=== PATIENT | female | born 1965 | race Caucasian/White ===

== ENCOUNTER → 2017-01-12 18:27 | Outpatient (CLI) | payer BC | END | disposition home or self-care (01) | LOC: D.MAMMO 10:45 | DX: Z12.31 Encounter for screening mammogram for malignant neoplasm of breast (principal) ==

== ENCOUNTER → 2017-12-14 11:16 | Outpatient (CLI) | payer BC | END | disposition home or self-care (01) | LOC: D.CT 11-10 13:00 | DX: J32.9 Chronic sinusitis, unspecified (principal) ==

== ENCOUNTER 2018-07-30 19:19 | Emergency (ER) | payer BC ==
[~2018-07-30] VITALS: Ht 165.1 cm; Wt 139.5 kg
[2018-07-30 19:27] VITALS: Ht 165.1 cm; Wt 139.5 kg
[2018-07-30] MEDS ORDERED: GLUCOPHAGE1000 MG PO (19:29)
[2018-07-30] MEDS ORDERED: PRAVASTATIN SOD10 MG PO (19:29)
[2018-07-30] MEDS ORDERED: LISINOPRIL5 MG PO (19:29)
[2018-07-30] MEDS ORDERED: VITAMIN D31000 UNIT PO (19:30)
[2018-07-30] MEDS ORDERED: GLUCOTROL ER2.5 MG PO (19:30)
[2018-07-30 20:05] LABS: APPEARANCE CLOUDY (CLEAR); BASOPHILS 0.4 % (0-2); COLOR YELLOW (YELLOW); EOSINOPHILS 1.7 % (0-7); HEMATOCRIT 49.2 % (36.0-48.0); HEMOGLOBIN 16.8 g/dL (12-16); LYMPHOCYTES 34.4 % (15-50); MCH 32.4 pg (26.0-34.0); MCHC 34.1 g/dL (31.0-37.0); MONOCYTES 6.1 % (2-11); NEUTROPHILS 56.4 % (40-80); PLATELET COUNT 184 10x3/uL (130-400); RBC 5.18 10x6/uL (4.00-5.40); RDW 14.5 % (11.5-14.5); SPECIFIC GRAVITY 1.025 (1.005-1.020); WBC 10.3 10x3/uL (4.8-10.8)
[2018-07-30 20:06] LABS: BILIRUBIN NEGATIVE (NEGATIVE); GLUCOSE 1000 mg/dL (NEGATIVE); KETONE NEGATIVE (NEGATIVE); NITRITE NEGATIVE (NEGATIVE); PROTEIN 1+ mg/dL (NEGATIVE); UROBILINOGEN NORMAL (NORMAL)
[2018-07-30 20:09] LABS: BACTERIA MODERATE /hpf (NONE SEEN)
[2018-07-30 20:23] LABS: ALBUMIN 3.5 g/dL (3.4-5.0); ANION GAP 15.8 mmol/L (8-16); BILIRUBIN - TOTAL 0.48 mg/dL (0.2-1.3); CALCIUM 9.3 mg/dL (8.5-10.1); CARBON DIOXIDE 25.3 mmol/L (21.0-32.0); CREATININE - SERUM 1.1 mg/dL (0.6-1.3); MAGNESIUM - SERUM 1.7 mg/dL (1.8-2.4); POTASSIUM - SERUM 4.1 mmol/L (3.5-5.1); PROTEIN - SERUM 7.8 g/dL (6.4-8.2)
[2018-07-30] MEDS ORDERED: ZOFRAN4 MG PO (21:56)
[2018-07-30] MEDS ORDERED: FLOMAX0.4 MG PO (21:56)
[2018-07-30] MEDS ORDERED: TYLENOL W/CODEI1 TAB PO (21:56)
[2018-07-30 22:40] VITALS: BP 135/59
[2018-08-10] MEDS ORDERED: LISINOPRIL2.5 MG PO (11:44)
[2018-08-10] MEDS ORDERED: CELEXA20 MG PO (11:44)
[2018-08-10] MEDS ORDERED: FISH OIL 1,0001 CA1 PO (11:46)
[2018-08-10] MEDS ORDERED: HEMP PO (11:46)
[2018-08-13 13:35] VITALS: Ht 165.1 cm; Wt 139.5 kg
== END 2018-07-30 22:25 | disposition home or self-care (01) ==
LOC: D.ER 19:19
PROVIDERS: Emergency Medicine
DX: N13.2 Hydronephrosis with renal and ureteral calculous obstruction (principal); E86.0 Dehydration; E11.9 Type 2 diabetes mellitus without complications; I10 Essential (primary) hypertension; F17.200 Nicotine dependence, unspecified, uncomplicated

== ENCOUNTER → 2018-08-02 11:27 | Outpatient (CLI) | payer BC ==
[2018-07-30 19:27] VITALS: BMI 51.1
[~2018-08-02 11:27] MED LIST: CELEXA20 MG PO; FISH OIL 1,0001 CA1 PO; FLOMAX0.4 MG PO; GLUCOPHAGE1000 MG PO; GLUCOTROL ER2.5 MG PO; HEMP PO; LISINOPRIL2.5 MG PO; LISINOPRIL5 MG PO; NORCO 7.5/325 T1 TA1 PO; PRAVASTATIN SOD10 MG PO; TYLENOL W/CODEI1 TAB PO; VITAMIN D31000 UNIT PO; ZOFRAN4 MG PO
[2018-08-13 13:35] VITALS: BMI 50.7
== END | disposition home or self-care (01) ==
LOC: D.RAD 11:27
DX: N20.1 Calculus of ureter (principal)

== ENCOUNTER 2018-08-12 07:30 | Inpatient (IN) | payer BC ==
[2018-08-10 12:32] LABS: BASOPHILS 0.4 % (0-2); EOSINOPHILS 1.6 % (0-7); HEMATOCRIT 50.8 % (36.0-48.0); HEMOGLOBIN 17.1 g/dL (12-16); IMMATURE GRANULOCYTES 0.4 % (0-5); LYMPHOCYTES 37.2 % (15-50); MCHC 33.7 g/dL (31.0-37.0); MCV 98.1 fL (80.0-100.0); MEAN PLATELET VOLUME 12.7 fL (7.4-10.4); MONOCYTES 5.7 % (2-11); NEUTROPHILS 54.7 % (40-80); PLATELET COUNT 174 10x3/uL (130-400); RBC 5.18 10x6/uL (4.00-5.40); RDW 14.7 % (11.5-14.5); WBC 9.3 10x3/uL (4.8-10.8)
[2018-08-10 12:52] LABS: APTT 27.2 SECONDS (22.8-39.4); INR 0.98 (0.85-1.17); PROTIME 12.6 SECONDS (11.6-15.0)
[2018-08-10 12:58] LABS: CALC OSMOLALITY 278 mosm/kg (275-300); CALCIUM 9.3 mg/dL (8.5-10.1); CARBON DIOXIDE 31.3 mmol/L (21.0-32.0); CHLORIDE - SERUM 100 mmol/L (98-107); CREATININE - SERUM 0.8 mg/dL (0.6-1.3); POTASSIUM - SERUM 4.3 mmol/L (3.5-5.1); SODIUM 139 mmol/L (136-145); UREA NITROGEN 8 mg/dL (7-18); eGFR NON AFRICAN AMERICAN 79 mL/min (90-120)
[2018-08-10 13:06] LABS: GLUCOSE 152 mg/dL (74-106)
[~2018-08-12] VITALS: Ht 165.1 cm; Wt 138.3 kg
--- NOTE | ~2018-08-12 | OP ---
PATIENT NAME: ANABEL ALDANA MEDICAL RECORD: [id number] :65 LOCATION:D[id number] ADMISSION DATE:08/12/18 SURGEON: UBALDO BERGERON MD DATE OF OPERATION: 08/12/2018 SURGEON: Ubaldo Bergeron MD ANESTHESIA: General anesthesia by Yunior Nair CRNA DIAGNOSES: Right 10-mm renal stone at the ureteropelvic junction causing renal hydronephrosis. Also morbid obesity. PROCEDURE: Right percutaneous nephrolithotomy (PCNL). FINDINGS: Radiodense 10-mm stone at the right UP junction. SPECIMEN: Right renal stone. BLOOD LOSS: Minimal. CLINICAL HISTORY: This is a 53-year-old female who was referred by the Emergency Room for right flank pain due to a 10-mm stone at the UP junction. The stone was radiodense on KUB. No other stones were seen in the CT scan. She is morbidly obese. There was concern about whether or not lithotripsy would even work to treat this large stone in such a patient. Her body habitus would attenuate a lot of the energy of lithotripsy. Also, there were concerns about the weight limit on the ESWL table. She weighs over 300 pounds. At last, upon discussion with the patient, we offered her right percutaneous nephrolithotomy to get the stone out in one go. She agreed to this approach. SHE IS ALLERGIC TO ASPIRIN. She was given Ancef on-call to the OR. Earlier today, she went to the interventional radiology suite, where a percutaneous nephroureteral access was placed by the radiologist. She went through the lower pole access. DESCRIPTION OF PROCEDURE: The patient was given induction of general anesthesia while she was in supine position. She was then prepped and draped and her legs were placed in frog-leg position in anticipation of cystoscopy. I normally pulled the distal end of the nephroureteral catheter out through the urethra in order to allow the guidewire to pass out through the urethra and we can then clamp the guidewire. This prevents backwards migration of the guidewire and loss of the access tract. It turns out that the tip of the nephroureteral catheter was already extending beyond the patient's own urethra. Therefore, just pulling on the slightly made it extend out fully. A 16-Liberian Stern catheter was then inserted into the bladder to drain the bladder during the surgery. The patient was then turned into the prone position on the Tom frame. She was then prepped and draped. The nephroureteral catheter was accessed with an Amplatz Super Stiff wire through the lumen. The circulating nurse saw the other end of the wire come out through the patient's urethra. A hemostat was placed on the wire to prevent its backward migration. The nephroureteral catheter was then completely removed. A 1-cm incision was made on either side of the Amplatz Super Stiff wire using a #15 blade. A dual-lumen catheter was then introduced over the Super Stiff wire. The dual-lumen catheter was placed up into the proximal ureter. Through the second lumen, we inserted a Sensor wire down to the bladder level. Once this Sensor wire was in the correct position, the dual-lumen catheter was removed entirely, leaving the [address]. The Sensor wire was clamped to the drapes to act as a safety wire. We OPERATIVE REPORT [id number] ANABEL ALDANA worked over the Super Stiff wire. The NephroMax 30-Liberian nephrostomy tract dilator was then used with 16 atmospheres of pressure to dilate the tract. The working sheath was slid down over the inflated balloon into the renal pelvis. The NephroMax balloon was then completely deflated and removed. The nephroscope was then introduced through the sheath. We removed blood clots using the Chadian LithoClast ultrasonic probe. We immediately encountered the stone at the UP junction. A Cook Perc NCircle stone basket was placed around the stone and the stone was entirely removed. Fluoroscopy revealed no further radiodense lesions after removal of the stone. Nephroscopy revealed no further stones to be present. The scope was then removed. Over the Super Stiff wire, we inserted the 24-Liberian Malecot nephrostomy tube. Once the tube was in correct position, the stylet of the nephrostomy tube was removed. The safety wire was removed. The working sheath was completely removed. Finally, the circulating nurse was able to pull on the hemostat on the Amplatz Super Stiff wire and distally pull it out. Thus, the patient has no further wires in her system. The nephrostomy tube was sutured to the skin using 2-0 nylon. This was put to bag drainage. Dressings of 4 x 4 gauze and an ABD pad and tape were applied over the nephrostomy tube site. The patient will be admitted for management of the nephrostomy tube. If, on postoperative day #2, the urine is fairly clear from the nephrostomy tube, then the tube can be removed and she can go home without a tube in place. TRANSINT:[id number] Voice Confirmation ID: [id number] DOCUMENT ID: [id number] UBALDO BERGERON MD at 1830 CC: [id number] DICTATION DATE: 08/12/18 1615 APPEALS AND GENERALIST CLERK: 08/12/18 1755 ADM IN [facility] [address] [id number]
--- NOTE | ~2018-08-12 | HEMODYNAMI ---
PATIENT:ANABEL ALDANA MEDICAL RECORD: [id number] : 65 LOCATION:[facility] ADMISSION DATE: 08/12/18 Generatedon:08/12/201810:40 Patient name: ANABEL ALDANA Patient #: [id number] SSN: : 1965 Date of study: 08/12/2018 Page: Of Hemodynamic Procedure Report Patient Data Patient Demographics Procedure consent was obtained First Name: ANABEL Gender: Female Last Name: KATYA : 1965 Middle Initial: M Age: 53 year(s) Patient #: [id number] Race: Unknown Additional ID: [id number] Contact details Address: [address] [place] [address] State: [place] City: [place] Zip code: [address] Past Medical History Allergies Allergen Reaction Date Comments Reported Aspirin 08/12/2018 Admission Admission Data Admission Date: 08/12/2018 Admission Time: 7:30 Procedure Procedure Types Cath Procedure Peripheral Cath Diagnostic Procedure Nephro Procedure Description Procedure Date Procedure Date: 08/12/2018 Procedure Start Time: 10:08 Procedure Staff Name Function Carmen Albert RT Monitor Qamar Kwon RT Scrub Karen Prince RN Nurse Annie Mcfarland MD Performing Physician Procedure Data Cath Procedure Fluoroscopy Diagnostic fluoroscopy Total fluoroscopy Time: 5.8 time: 5.8 min min Diagnostic fluoroscopy Total fluoroscopy dose: 267 dose: 267 mGy mGy Procedure Medications Medication Administration Route Dosage Lidocaine 1% added to field 20 Heparin Flush Bag added to field 1 bags (1000units/500ml NS) unlisted medication 1 Versed I.V. 1 mg Fentanyl I.V. 50 mcg Versed I.V. 1 mg Fentanyl I.V. 50 mcg Versed I.V. 1 mg Fentanyl I.V. 50 mcg Hemodynamics Rest Heart Rate: 70 (bpm) Snapshots Pre Cath Intra NCS Post Cath Vital Signs Time Heart Resp SPO2 etCO2 NIBP (mmHg) Rhythm Pain Sedation Rate (ipm) (%) (mmHg) Status Level (bpm) 9:46:41 67 21 87 0 98/36(86) NSR 0 (11) 10(A) , No pain 9:51:40 64 32 93 0 Measuring NSR 0 (11) 10(A) , No pain 9:51:46 62 29 93 0 140/80(121) NSR 0 (11) 10(A) , No pain 9:56:12 66 24 0 123/87(110) NSR 0 (11) 10(A) , No pain 10:00:29 68 29 0 140/83(106) NSR 0 (11) 10(A) , No pain 10:04:55 68 22 0 132/81(105) NSR 0 (11) 10(A) , No pain 10:09:13 69 18 95 0 132/92(103) NSR 0 (11) 10(A) , No pain 10:13:33 75 19 91 0 128/86(103) NSR 0 (11) 10(A) , No pain 10:17:51 75 24 91 0 129/83(105) NSR 0 (11) 10(A) , No pain 10:22:05 83 22 91 0 139/93(118) NSR 0 (11) 10(A) , No pain 10:26:25 71 15 93 0 143/90(106) NSR 0 (11) 10(A) , No pain Medications Time Medication Route Dose Verified Delivered Reason Notes Effec tiveness by by 9:50:12 Lidocaine 1% added 20ml M J Long M J Long used for to vial MD VINCENT procedure field 9:50:25 Heparin Flush added 1 M J Long M J Long used for Bag to bags MD VINCENT procedure (1000units/500ml field NS) 9:50:44 cefepime iv 1 gm M J Long Karen MD Prince RN 10:08:40 Versed I.V. 1 mg M J Long Karen for MD Prince RN sedation 10:08:49 Fentanyl I.V. 50 M J Long Karen for catie Prince RN sedation 10:21:26 Versed I.V. 1 mg M J Long Karen for MD Suresh ENCARNACION sedation 10:21:33 Fentanyl I.V. 50 M J Long Karen for catie Prince RN sedation 10:22:24 Versed I.V. 1 mg M J Long Karen for MD Suresh RN sedation 10:22:31 Fentanyl I.V. 50 M Jaspreet Jones for [facility] [place] Prince RN sedation Procedure Log Time Note 9:33:07 Qamar Kwon RT (R) (CV) sent for patient. Start room use. 9:33:20 Time tracking: Regular hours (M-F 7:00 - 5:00) 9:33:24 Plan of Care:Hemodynamics will remain stable., Cardiac rhythm will remain stable., Comfort level will be maintained., Respiratory function will remain adequate., Patient/ family verbilizes understanding of procedure., Procedure tolerated without complication., Recovers from procedure without complications.. 9:33:33 Patient received from Outpatients to IR Alert and oriented. Tansferred to table in Prone position. 9:33:37 Correct patient and procedure confirmed by team. 9:33:39 Signed procedure consent form obtained from patient. 9:33:43 Full Disclosure recording started 9:33:55 - 9:33:59 H&P Date Dictated: 08/12/2018 H&P Addendum completed by physician on da y of procedure. (MUST COMPLETE FOR ALL OUTPATIENTS). 9:34:01 Pre-op teaching completed and patient verbalized understanding. 9:34:01 Pre-procedure instructions explained to patient. 9:34:03 Family in waiting room. 9:34:05 Patient NPO since Midnight. 9:34:18 Patient allergic to Aspirin 9:34:23 Is the patient allergic to Iodine/contrast media? No. 9:34:25 Is patient on blood thinner?No 9:34:27 Patient diabetic? Yes. 9:34:28 If diabetic: On Metformin? Yes 9:34:37 If on Metformin: Last Dose? 08/11/2018 9:34:45 - 9:34:46 ----Pre-sedation anethsthesia assessment.---- 9:34:49 Previous problem with sedation/anesthesia? No ? 9:34:52 Snore? Yes 9:34:53 Sleep apnea? Yes 9:34:55 Deviated septum? No 9:34:57 Opens mouth fully? Yes 9:35:00 Sticks out tongue? Yes 9:35:02 Airway obstruction? No ? 9:35:15 Dentures? Yes in 9:35:20 Use device set IR Diagnostic 9:35:22 Sterile Angiographic Pack opened to sterile field. 9:35:22 Bag Decanter () opened to sterile field. 9:39:30 KIT, INTRODUCER ACCUSTICK II W/C ([id number]) opened to sterile field. 9:39:43 CHIBA 22 X 15 needle opened to sterile field. 9:45:20 - 9:45:25 ECG and BP/O2 sat monitors applied to patient. 9:45:27 Vital chart was started 9:45:29 Baseline sample Acquired. 9:45:35 - 9:50:12 Lidocaine 1% 20ml vial added to field was administered by Annie Mcfarland MD; used for procedure; 9:50:25 Heparin Flush Bag (1000units/500ml NS) 1 bags added to field was administered by Annie Mcfarland MD; used for procedure; 9:50:44 cefepime 1 gm iv was administered by Karen Prince RN; ; 9:54:07 GLIDE CATHETER 5FR ANGLED 65cm (CG507) opened to sterile field. 10:02:50 IV patent on arrival in right forearm with D5/.45%NaCl at KVO. 10:03:01 Right abdomen area was prepped with chlora-prep and draped in sterile fashion 10:03:04 - 10:07:37 Physician arrived 10:07:40 --------ALL STOP TIME OUT------ 10:07:41 Final Timeout: patient, procedure, and site verified with staff and physician. All members of the team are in agreement. 10:08:02 Procedure started. 10:08:09 Local anesthetic to Abdominal area with Lidocaine 1% by Annie Mcfarland MD.INITIAL ACCESS ONLY 10:08:40 Versed 1 mg I.V. was administered by Karen Prince RN; for sedation; 10:08:49 Fentanyl 50 mcg I.V. was administered by Karen Prince RN; for sedation ; 10:14:49 NITINOL .018 80cm wire ([id number]) opened to sterile field. 10:18:47 GLIDE WIRE ANGLE 180cm ([id number]) opened to sterile field. 10:21:26 Versed 1 mg I.V. was administered by Karen Prince RN; for sedation; 10:21:33 Fentanyl 50 mcg I.V. was administered by Karen Prince RN; for sedation ; 10:22:24 Versed 1 mg I.V. was administered by Karen Prince RN; for sedation; 10:22:31 Fentanyl 50 mcg I.V. was administered by Karen Prince RN; for sedation ; 10:24:44 Procedure ended.(Physican Out) 10:24:53 Fluoroscopy time 05.80 minutes. 10:25:23 Fluoroscopy dose: 267 mGy 10:25:23 Flurop Dose total: 267 10:25:38 Report given to Outpatients. 10:27:23 Procedure and supply charges have been captured, reviewed, submitted an d are correct. 10:30:51 Vital chart was stopped 10:30:55 Full Disclosure recording stopped Device Usage Item Name Manufacture Quantity Catalog Hospital Part Current Minimal Lot# / Number Charge Number Stock Stock Serial# Code Bag Decanter Microtek 1 [id number] 5 () Medical Inc. Sterile Cardinal 1 [id number] [id number] 5 Angiographic Health Pack KIT, [place] 1 [id number] 173814 838418 [id number] 5 INTRODUCER Scientific ACCUSTICK II W/C ([id number]) CHIBA 22 X Cook Medical 1 [id number] 689203 [id number] 5 15 needle GLIDE Terumo 1 [id number] 452486 [id number] 5 CATHETER 5FR ANGLED 65cm (CG507) NITINOL .018 Medtronic 1 [id number] [id number] 108560 5 80cm wire ([id number]) GLIDE WIRE Terumo 1 [id number] 162522 086523 [id number] 5 ANGLE 180cm ([id number]) Signature Audit [place] Time Signature Unsigned Intra-Procedure 08/12/2018 Carmen Kwon RT 10:30:49 AM RT(R) (R) (CV) 08/12/2018 10:38:59 AM Intra-Procedure 08/12/2018 Qamar 10:39:38 AM Doyle RT (R) (CV); Carmen Albert RT(R) Signatures Monitor : Carmen Albert RT Signature : Date : Time : [address] [address]
[~2018-08-12 07:30] MED LIST changes: -NORCO 7.5/325 T1 TA1 PO
[2018-08-12 08:38] VITALS: BP 130/72; BMI 51.3
[2018-08-12 17:17] VITALS: BP 135/75
[2018-08-12 17:36] LABS: BASOPHILS 0.4 % (0-2); EOSINOPHILS 0.5 % (0-7); HEMATOCRIT 46.4 % (36.0-48.0); HEMOGLOBIN 14.9 g/dL (12-16); IMMATURE GRANULOCYTES 0.5 % (0-5); LYMPHOCYTES 22.4 % (15-50); MCH 32.2 pg (26.0-34.0); MCHC 32.1 g/dL (31.0-37.0); MCV 100.2 fL (80.0-100.0); MONOCYTES 5.7 % (2-11); NEUTROPHILS 70.5 % (40-80); PLATELET COUNT 154 10x3/uL (130-400); RBC 4.63 10x6/uL (4.00-5.40); WBC 9.2 10x3/uL (4.8-10.8)
[2018-08-12 18:36] VITALS: BP 135/75
[2018-08-12 21:24] VITALS: BP 151/91
[2018-08-13 05:18] VITALS: BP 167/97
[2018-08-13 08:57] VITALS: BP 115/61
[2018-08-13 12:30] VITALS: BP 119/61
[2018-08-13 13:35] VITALS: Ht 165.1 cm; Wt 138.3 kg
[2018-08-13 21:00] VITALS: BP 105/65
[2018-08-14 05:10] VITALS: BP 124/78
[2018-08-14 09:40] VITALS: BP 128/57
[2018-08-14] MEDS ORDERED: NORCO 7.5/325 T1 TA1 PO (12:37)
[2018-08-24 17:11] LABS: CALCULI - CA OXALATE DIHYDRATE 10 % (()); CALCULI - CA OXALATE MONOHYDR 85 % (()); CALCULI - COLOR Brown (()); CALCULI - SIZE 13 mm (())
== END 2018-08-14 13:46 | disposition home or self-care (01) | DRG 669 ==
LOC: D.OPS 07:30 → D.MS 16:56 → D.OPS 17:13 → D.MS 17:15 → OBSVTIME 17:15 → D.MS 08-13 16:50
PROVIDERS: Anesthesiology; Radiology Vascular & Interventional Radiology; Urology
PROC: 0T9330Z Drainage of Right Kidney Pelvis with Drainage Device, Percutaneous Approach (ICD-10-PCS; 2018-08-12)
PROC: 0TC38ZZ Extirpation of Matter from Right Kidney Pelvis, Via Natural or Artificial Opening Endoscopic (ICD-10-PCS; principal; 2018-08-12 10:00)
DX: N13.2 Hydronephrosis with renal and ureteral calculous obstruction (principal); Z68.43 Body mass index [BMI] 50.0-59.9, adult; E66.01 Morbid (severe) obesity due to excess calories

== ENCOUNTER → 2018-09-01 18:29 | Outpatient (CLI) | payer BC ==
[2018-08-13 13:35] VITALS: BMI 50.7
[~2018-09-01 18:29] MED LIST changes: +NORCO 7.5/325 T1 TA1 PO
== END | disposition home or self-care (01) ==
LOC: D.LABREF 18:29
DX: R31.9 Hematuria, unspecified (principal)

== ENCOUNTER → 2018-10-28 16:33 | Outpatient (CLI) | payer BC ==
[2018-08-13 13:35] VITALS: BMI 50.7
== END | disposition home or self-care (01) ==
LOC: D.LABREF 16:33
DX: N39.0 Urinary tract infection, site not specified (principal)